=== PATIENT | male | born 1965 | race Caucasian/White ===

== ENCOUNTER 2020-03-31 18:26 | Emergency (ER) | payer SELFPAY ==
[~2020-03-31] VITALS: Ht 175.3 cm; Wt 81.8 kg
[2020-03-31 21:11] VITALS: BP 163/97
--- NOTE | 2020-03-31 21:35 | PHYS DOC ---
Past Medical History Past Medical History: No Pertinent History Past Surgical History: Appendectomy Smoking Status: Current Every Day Smoker Alcohol Use: Heavy General Adult EDM: Chief Complaint: HIP PAIN HPI: HPI: Patient is a 54 year old male who presents to the emergency department complaining of left buttock pain that radiates to the upper back side of his thigh. Patient describes this pain as a 8/10 burning sensation with an achy sensation. 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 Patient states that he recently started this job a few weeks ago and noticed this pain coming on over the past 2 weeks stating it gets worse and worse every day and is no longer relieved by p.o. ibuprofen. Patient denies any fever or chills, denies any exposure to the COVID-19 virus nor is concerned of having the COVID-19 virus. Patient denies any cough shortness of breath chest pain abdominal pain nausea vomiting or diarrhea. She denies any upper or lower back pain or pain in his joints. Patient denies headaches focal weaknesses tingly sensations or sensory changes. Patient denies any depressions anxieties homicidal or suicidal ideation. Review of Systems: Review of Systems: Constitutional: Denies fever or chills. Eyes: Denies change in visual acuity. HENT: Denies nasal congestion or sore throat. Respiratory: Denies cough or shortness of breath. Cardiovascular: Denies chest pain or edema. GI: Denies abdominal pain, nausea, vomiting, bloody stools or diarrhea. : Denies dysuria. Musculoskeletal: Denies back pain or joint pain. Complains of left middle buttocks burning sensation that radiates down to the upper part of his left back thigh. Integument: Denies rash. Neurologic: Denies headache, focal weakness or sensory changes. Endocrine: Denies polyuria or polydipsia. Lymphatic: Denies swollen glands. Psychiatric: Denies depression or anxiety. Heart Score: Risk Factors: Risk Factors: DM, Current or recent (<one month) smoker, HTN, HLP, family history of CAD, obesity. Risk Scores: Score 0 - 3: 2.5% MACE over next 6 weeks - Discharge Home Score 4 - 6: 20.3% MACE over next 6 weeks - Admit for Clinical Observation Score 7 - 10: 72.7% MACE over next 6 weeks - Early Invasive Strategies Allergies: Allergies: Allergies Coded Allergies Type Severity Reaction Last Updated Verified No Known Drug Allergies 03/31/20 No Physical Exam: PE: Constitutional: Well developed, well nourished, no acute distress, non-toxic appearance. HENT: Normocephalic, atraumatic, bilateral external ears normal, oropharynx moist, no oral exudates, nose normal. Eyes: PERRLA, EOMI, conjunctiva normal, no discharge. Neck: Normal range of motion, no tenderness, supple, no stridor. Cardiovascular:Heart rate regular rhythm, no murmur Lungs & Thorax: Bilateral breath sounds clear to auscultation Abdomen: Bowel sounds normal, soft, no tenderness, no masses, no pulsatile masses. Skin: Warm, dry, no erythema, no rash. Back: No tenderness, no CVA tenderness. Extremities: No tenderness, no cyanosis, no clubbing, ROM intact, no edema. The patient's left center buttock area down to the superior aspect of his left hamstring pain with palpation, no radiation of this pain, no numbness or tingling noted, full AROM/PROM, distal cap refill less than 2 seconds, 2+ dorsalis pedis and posterior tibial pulses. Neurologic: Alert and oriented X 3, normal motor function, normal sensory function, no focal deficits noted. [] Psychologic: Affect normal, judgement normal, mood normal. [] Current Patient Data: Vital Signs: Vital Signs Date Time Temp Pulse Resp B/P (MAP) Pulse Ox O2 Delivery O2 Flow Rate FiO2 03/31/20 21:11 97.8 88 16 163/97 (119) 98 Room Air 97.8 EKG: EKG: [] Radiology/Procedures: Radiology/Procedures: [] Course & Med Decision Making: Course & Med Decision Making Pertinent Labs and Imaging studies reviewed. (See chart for details) 54-year-old male patient presents emergency department with pain in his left buttocks that radiates to the back of his leg. Examination was consistent with sciatica pain. Patient had no saddle anesthesia, had no acute injury to his back or his extremities. This is most likely sciatica pain. Discussed findings with patient, patient was given IM Toradol injection which relieved his pain from a 10/10 to a 1/10. Discussed sciatica pain, home care treatment, medications, off work note, and follow-up with primary care physician. Patient gave verbal understanding of these instructions. Patient was given a pr escription for pain medication. Patient is to follow-up with primary care physician for further problems with sciatica pain. Patient had no further questions or concerns. Patient discharged home. Terra Disclaimer: Terra Disclaimer: This electronic medical record was generated, in whole or in part, using a voice recognition dictation system. Departure Departure Impression: Primary Impression: Sciatica of left side Disposition: HOME, SELF-CARE Condition: IMPROVED Referrals: NO PCP (PCP) Patient Instructions: Sciatica Additional Instructions: Take medications as prescribed, return to the ER for worsening symptoms or further concerns, see your doctor soon. Scripts Ibuprofen (IBUPROFEN) 600 Mg Tablet 600 MG PO PRN Q6HRS PRN for INFLAMMATION, #20 TAB 0 Refills Prov: CORINNA CHAHAL APRN 03/31/20 Tramadol Hcl (TRAMADOL HCL) 50 Mg Tablet 50 MG PO PRN Q4-6HRS PRN for PAIN, #20 TAB 0 Refills Prov: CORINNA CHAHAL APRN 03/31/20 Justicifation of Admission Dx: Justifications for Admission: Justification of Admission Dx: N/A CORINNA CHAHAL APRN Mar 31, 2020 21:35
[2020-03-31] MEDS ORDERED: HYDROcodone/APAP 5/325MG 1 TAB TABLET PO ONE (21:45)
[2020-03-31] MEDS ORDERED: KETOROLAC 60 MG/2 ML VIAL. IM ONE (21:45)
[2020-03-31] MEDS ORDERED: TRAM50TA PO (22:56)
[2020-03-31] MEDS ORDERED: IBUP-1007 PO (22:56)
== END 2020-03-31 23:03 | disposition home or self-care (01) ==
LOC: ER 18:26
DX: M54.42 Lumbago with sciatica, left side (principal); R20.8 Other disturbances of skin sensation; F17.200 Nicotine dependence, unspecified, uncomplicated; F12.90 Cannabis use, unspecified, uncomplicated; Z90.89 Acquired absence of other organs
CPT/HCPCS: 96372; 99283; J1885